=== PATIENT | male | born 1945 | race Caucasian/White ===

== ENCOUNTER 2016-04-11 13:09 | Emergency (ER) | payer OTHER ==
[~2016-04-11] VITALS: Ht 190.5 cm; Wt 113.4 kg
[~2016-04-11 13:09] MED LIST: ACCUNEB SO1.25 MG/1 INH; ACETAMINOPHEN-1 EAC1 PO; ACETAMINOPHEN325 M1 PO; ADVAIR HFA115 MCG/21 INH; AMLODIPINE BESYL5 MG PO; AMOXICILLIN 50500 M1 PO; ATIVAN1 MG PO; AZITHROMYCIN 2250 MG PO; B-1100 MG PO; BENAZEPRIL HCL20 MG PO; CATAPRES0.2 MG PO; CELEXA20 MG PO; CLEOCIN HCL300 MG PO; COLACE100 MG PO; DOXYCYCLINE 10100 M1 PO; DULERA 200 MCG/13 GM INH; HYDRALAZINE 2525 MG PO; HYDROCHLOROTHIA25 M1 PO; HYDROCODON-ACE1 EAC7 PO; IBUPROFEN 600600 M1 PO; LEVAQUIN 500 M500 MG PO; MEDROL DOSPAK21 TA1 PO; MEDROL DOSPAK21 TAB PO; MULTIVITAMINS PO; NYSTATIN15 GM TOP; PEPCID20 MG PO; PRAVACHOL40 MG PO; PREDNISONE 10 M10 MG PO; PREDNISONE 20 M20 MG PO; PREDNISONE50 MG PO; PROAIR HFA8.5 GM INH; SPIRIVA INH; SYMBICORT160 MCG/4. INH; TESSALON200 MG PO; TRAMADOL 50 MG50 MG PO; TRINATE TABLET1 TAB PO; TYLENOL325 MG PO; VALIUM5 MG PO; VENTOLIN HFA 1818 GM INH; VITAMIN B-1100 M1 PO; ZOCOR 20 MG TAB20 M1 PO
[2016-04-11 13:45] LABS: HEMATOCRIT 41.9 % (42.0-52.0); HEMOGLOBIN 14.2 gm/dL (14.0-18.0); MCH 34.1 pg (26.0-34.0); MCHC 33.8 g/dL (28.0-37.0); MCV 100.6 fL (80.0-100.0); PLATELET COUNT 399 thou/uL (150-400); RBC 4.17 mil/uL (4.50-6.00); RDW 15.2 % (10.5-14.5); WBC 5.2 thou/uL (4.0-11.0)
[2016-04-11 14:00] LABS: MANUAL DIFF YES
[2016-04-11 14:01] LABS: CALCIUM 8.7 mg/dL (8.5-10.1); CREATININE 1.1 mg/dL (0.6-1.3); POTASSIUM 4.7 mmol/L (3.5-5.1)
[2016-04-11 14:05] LABS: ALBUMIN 3.2 g/dL (3.4-5.0); TOTAL BILIRUBIN 0.2 mg/dL (<0.1-1.0); TOTAL PROTEIN 6.6 g/dL (6.4-8.2)
[2016-04-11 14:07] LABS: AMP/METHAMP Negative (Negative); BARBITURATES Negative (Negative); BENZODIAZEPINES Negative (Negative); COCAINE Negative (Negative); METHADONE Negative (Negative); OPIATES Negative (Negative); PCP Negative (Negative); THC Negative (Negative)
[2016-04-11 14:30] LABS: ABSOLUTE NEUTROPHILS 3.5 thou/uL (1.4-8.2); ANISOCYTOSIS SLIGHT; METAMYELOCYTES 1 %; TOTAL CELL COUNT 100
== END 2016-04-11 18:13 | disposition home or self-care (01) ==
LOC: ER 13:09
PROVIDERS: Physician Assistant
DX: F10.129 Alcohol abuse with intoxication, unspecified (principal); R42 Dizziness and giddiness; R53.1 Weakness; I10 Essential (primary) hypertension; E78.00 Pure hypercholesterolemia, unspecified; M19.90 Unspecified osteoarthritis, unspecified site; J44.9 Chronic obstructive pulmonary disease, unspecified; Z88.6 Allergy status to analgesic agent; Z87.891 Personal history of nicotine dependence; Y90.8 Blood alcohol level of 240 mg/100 ml or more

== ENCOUNTER 2016-04-19 15:28 | Inpatient (IN) | payer OTHER ==
[~2016-04-19] VITALS: Ht 188 cm; Wt 121.6 kg
--- NOTE | ~2016-04-19 | HC ---
[facility] [place] [address] CONSULTATION Name: LAUREN MAJOR Room #: 450-P ADM IN M.R.#: [id number] Admission: 04/19/16 Attend Phys: Lloyd Marks MD Discharge: Date of : 41 Report #: [id number] THIS REPORT FOR: //name// CC: CLAU physician/PCP Lloyd Marks DATE OF SERVICE: 04/20/2016 DATE OF SERVICE: 04/20/2016. IDENTIFICATION: Psychiatric evaluation as requested for alcohol dependence. HISTORY OF PRESENT ILLNESS: The patient is a 70-year-old retired male with a well known history of alcohol dependence, in fact last year, he had a prolonged period of alcohol withdrawal requiring hospitalization. He was seen by Dr. Marks in consultation at that time and patient denied any significant depression and seemed to have some vague motivations regarding sobriety. Dr. Marks has offered for patient to follow up with him in his office, but the patient did not follow through. Other than the patient's history of alcohol dependence, he has not reported to have any underlying psychiatric illness. There are no reports of devin or psychosis. The patient presented at the hospital of his own accord requesting detox from alcohol. He denies that he is self medicating for depression or anxiety, rather he states that he is bored and spends most of his time by himself and alcohol is how he chooses to pass the time. He does have some insight that his alcohol use is problematic and he states that he is motivated to quit drinking. ALLERGIES: TRAMADOL. MEDICATIONS: Reviewed. Include Ativan as needed for alcohol withdrawal. Haldol 2.5 mg every 2 hours as needed. PAST MEDICAL HISTORY: Hyperlipidemia, hypertension, bronchitis, arthritis, chronic obstructive pulmonary disease, chronic kidney disease. FAMILY HISTORY: Noncontributory. SOCIAL HISTORY: Lives alone, history of smoking cigarettes. He is retired. He has 2 sons who are supportive. LABORATORY DATA: Blood alcohol level was 351 upon arrival. MENTAL STATUS EXAMINATION: Adequate hygiene, polite, cooperative, good eye contact. Speech regular rate and rhythm. Thought process linear, logical, and coherent. No hallucinations or delusions. No suicidal or homicidal ideation. [facility] [address] [place] [address] CONSULTATION Name: LAUREN MAJOR Room #: 450-P [facility] IN M.R.#: [id number] Admission: 04/19/16 Attend Phys: Lloyd Marks MD Discharge: Date of : 41 Report #: [id number] Affect calm and euthymic, plangent, alert and oriented x 3. Insight and judgment are fair. DIAGNOSIS: Alcohol dependence. PLAN: The patient essentially declined any psychiatric intervention. He does deny any depression or anxiety. I discussed with him the possibility of a medication such as naltrexone or Campral for alcohol cravings, but in the end, he declines that as well. He appears to be in the contemplating stage of motivation for change at best. He is not agreeable to inpatient rehabilitation but was willing to consider the possibility of some outpatient treatment, though he is not yet ready to commit to this. I agree with current alcohol detoxification protocol, alcohol withdrawal symptoms appear to be well controlled at this time. Thank you for this consultation. Please contact me with any further questions or concerns. By: [id number] Lalitha Gasca MD /nt
[2016-04-19 15:29] VITALS: BP 156/86
[2016-04-19 17:09] LABS: ABSOLUTE NEUTROPHILS 3.6 thou/uL (1.4-8.2); BASOPHILS 0.4 % (0.0-2.0); EOSINOPHILS 1.6 % (0.0-3.0); HEMATOCRIT 38.4 % (42.0-52.0); HEMOGLOBIN 13.1 gm/dL (14.0-18.0); LYMPHOCYTES 27.1 % (24.0-44.0); MCH 34.2 pg (26.0-34.0); MCHC 34.1 g/dL (28.0-37.0); MCV 100.3 fL (80.0-100.0); MONOCYTES 9.9 % (1.0-8.0); PLATELET COUNT 207 thou/uL (150-400); RBC 3.83 mil/uL (4.50-6.00); WBC 5.8 thou/uL (4.0-11.0)
[2016-04-19 17:10] LABS: MANUAL DIFF NO
[2016-04-19 17:23] LABS: ANION GAP 10 mmol/L (7-16); BUN 7 mg/dL (7-18); CALCIUM 8.2 mg/dL (8.5-10.1); CHLORIDE 106 mmol/L (98-107); CO2 23 mmol/L (21-32); GLUCOSE 111 mg/dL (70-99); POTASSIUM 4.8 mmol/L (3.5-5.1); SODIUM 139 mmol/L (136-145)
[2016-04-19 17:27] LABS: ALBUMIN 2.9 g/dL (3.4-5.0); ALKALINE PHOSPHATASE 68 U/L (46-116); DIRECT BILIRUBIN < 0.1 mg/dL (<0.1-0.3); SGOT 64 U/L (15-37); SGPT 41 U/L (30-65); TOTAL BILIRUBIN 0.3 mg/dL (<0.1-1.0); TOTAL PROTEIN 6.4 g/dL (6.4-8.2)
[2016-04-19 19:14] LABS: URINE BILIRUBIN NEGATIVE (Negative); URINE BLOOD NEGATIVE (Negative); URINE COLOR YELLOW; URINE GLUCOSE-RANDOM* NEGATIVE (Negative); URINE KETONES NEGATIVE (Negative); URINE NITRITE NEGATIVE (Negative); URINE PROTEIN (DIPSTICK) NEGATIVE (Negative); URINE SPECIFIC GRAVITY <= 1.005 (1.003-1.035); URINE UROBILINOGEN 0.2 E.U./dl (0.2-1.0)
[2016-04-19 19:18] LABS: AMP/METHAMP Negative (Negative); BARBITURATES Negative (Negative); BENZODIAZEPINES Negative (Negative); COCAINE Negative (Negative); METHADONE Negative (Negative); OPIATES Negative (Negative); PCP Negative (Negative); THC Negative (Negative)
[2016-04-19 20:15] VITALS: BP 138/73
[2016-04-19 23:06] LABS: FOLIC ACID 33.2 ng/mL (8.6-58.9)
[2016-04-20 04:39] VITALS: BP 122/62
[2016-04-20 08:13] VITALS: BP 138/56
[2016-04-20 10:11] LABS: FREE T4 1.01 ng/dL (0.82-1.77)
[2016-04-20 12:51] LABS: MAGNESIUM 1.5 mg/dL (1.8-2.4); PHOSPHORUS 3.6 mg/dL (2.5-4.9)
[2016-04-20 13:00] VITALS: BP 161/85
[2016-04-20 16:00] VITALS: BP 124/66
[2016-04-20 20:02] VITALS: BP 147/91
[2016-04-21 02:51] VITALS: BP 151/89
[2016-04-21 06:00] LABS: CALCIUM 8.2 mg/dL (8.5-10.1); CREATININE 0.9 mg/dL (0.6-1.3); MAGNESIUM 1.1 mg/dL (1.8-2.4); PHOSPHORUS 3.2 mg/dL (2.5-4.9); POTASSIUM 3.2 mmol/L (3.5-5.1)
[2016-04-21 07:09] VITALS: BP 142/82
[2016-04-21] MEDS ORDERED: PRENATAL PO (10:45)
[2016-04-21] MEDS ORDERED: VITAMIN B-1100 M2 PO (10:45)
[2016-04-21 11:21] VITALS: BP 154/91
[2016-04-21 11:43] LABS: MAGNESIUM 1.1 mg/dL (1.8-2.4); POTASSIUM 3.6 mmol/L (3.5-5.1)
[2016-04-21 14:40] VITALS: BP 154/91
[2016-04-21 14:49] VITALS: BP 154/91
== END 2016-04-21 17:26 | disposition home health service (06) | DRG 895 ==
LOC: ER 15:28 → EROBS 16:40 → 4W 16:40
PROVIDERS: Emergency Medicine; Family Medicine
PROC: HZ31ZZZ Individual Counseling for Substance Abuse Treatment, Behavioral (ICD-10-PCS; principal; 2016-04-20)
DX: F10.229 Alcohol dependence with intoxication, unspecified (principal); E44.1 Mild protein-calorie malnutrition; E78.5 Hyperlipidemia, unspecified; M19.90 Unspecified osteoarthritis, unspecified site; J44.9 Chronic obstructive pulmonary disease, unspecified; I12.9 Hypertensive chronic kidney disease with stage 1 through stage 4 chronic kidney disease, or unspecified chronic kidney disease; N18.9 Chronic kidney disease, unspecified; Y90.8 Blood alcohol level of 240 mg/100 ml or more; Z60.2 Problems related to living alone; E87.6 Hypokalemia; Z79.899 Other long term (current) drug therapy; Z90.49 Acquired absence of other specified parts of digestive tract; Z87.891 Personal history of nicotine dependence; Z88.6 Allergy status to analgesic agent
CPT/HCPCS: 10045

== ENCOUNTER 2016-04-26 01:01 | Inpatient (IN) | payer OTHER ==
[~2016-04-26] VITALS: Ht 188 cm; Wt 123.1 kg
[2016-04-26] VITALS (7 sets, daily range): BP systolic 119–166; BP diastolic 45–82
--- NOTE | ~2016-04-26 | HC ---
[facility] [place] [address] CONSULTATION Name: LAUREN MAJOR Room #: 434-P [facility]#: [id number] Admission: 04/26/16 Attend Phys: Greg Macedo MD Discharge: Date of : 41 Report #: [id number] THIS REPORT FOR: //name// CC: CLAU physician/PCP Greg Macedo DATE OF SERVICE: 04/26/2016 HISTORY OF PRESENT ILLNESS: This gentleman was admitted with concerns about intoxication and need for alcohol detoxification. The patient does have a history of alcoholism. He has been in the hospital earlier this month. He has been evaluated in local Emergency Room as well, I believe and was sent to the triage center downtown. The patient does state he is here because he is interested in obtaining sobriety. He denies underlying depression or anxiety. PAST PSYCHIATRIC HISTORY: The patient denies he has been seen by my partner earlier in the month. At that time, he was also denying depressive comorbidities. SOCIAL HISTORY: He lives alone. He is retired. He has 1 son in [place] and the other son in [facility]. PAST MEDICAL HISTORY: Hyperlipidemia, hypertension, bronchitis, arthritis, chronic obstructive pulmonary disease and chronic kidney disease. ALLERGIES: TRAMADOL. CURRENT MEDICATIONS: He is on an alcohol detox. COGNITIVE EXAMINATION: Alert and oriented to person, place, situation, and time. MENTAL STATUS EXAMINATION: male, casually dressed, stable mood, slightly restricted affect. No suicidal ideation, no homicidal ideation, no hallucinations, no delusions. Insight and judgment fair. DIAGNOSES: AXIS I: Adjustment disorder, depressed mood, overall depressive disorder, not otherwise specified; alcohol use disorder. AXIS II: Deferred. AXIS III: Hypertension, hyperlipidemia. AXIS IV: Moderate. AXIS V: 45. RECOMMENDATIONS: I did educate the gentleman on the benefits of a 21-30 day residential program for management of alcoholism. He is not that inclined to do [facility] [address] [place] [address] CONSULTATION Name: LAUREN MAJOR Room #: 434-P [facility]..#: [id number] Admission: 04/26/16 Attend Phys: Greg Macedo MD Discharge: Date of : 41 Report #: [id number] this, however. He is willing to do some sort of outpatient program and if we cannot find an intensive outpatient program that he would consider, we can look into having him see a therapist in our office a couple of times a week and also undergoing urine screen to assure of sobriety, supportive therapy and education. By: [id number] 1438 Anthony Barrera MD /nt
[~2016-04-26 01:01] MED LIST changes: +PRENATAL PO; +VITAMIN B-1100 M2 PO
[2016-04-26 02:39] LABS: HEMATOCRIT 34.7 % (42.0-52.0); HEMOGLOBIN 11.9 gm/dL (14.0-18.0); MCH 34.7 pg (26.0-34.0); MCHC 34.2 g/dL (28.0-37.0); MCV 101.5 fL (80.0-100.0); RBC 3.42 mil/uL (4.50-6.00); WBC 4.4 thou/uL (4.0-11.0)
[2016-04-26 02:40] LABS: CREATININE 1.2 mg/dL (0.6-1.3); POTASSIUM 3.6 mmol/L (3.5-5.1)
[2016-04-26 02:46] LABS: TOTAL BILIRUBIN 0.2 mg/dL (<0.1-1.0); TOTAL PROTEIN 5.9 g/dL (6.4-8.2)
[2016-04-26 07:26] LABS: MAGNESIUM 1.6 mg/dL (1.8-2.4); PHOSPHORUS 2.4 mg/dL (2.5-4.9)
[2016-04-26 08:31] LABS: FOLIC ACID 25.7 ng/mL (8.6-58.9)
[2016-04-27 04:57] VITALS: BP 146/65
[2016-04-27 05:12] LABS: MCHC 34.3 g/dL (28.0-37.0); MCV 102.1 fL (80.0-100.0); RBC 3.42 mil/uL (4.50-6.00); RDW 15.3 % (10.5-14.5); WBC 5.1 thou/uL (4.0-11.0)
[2016-04-27 05:30] LABS: ALBUMIN 3.1 g/dL (3.4-5.0); CALCIUM 8.5 mg/dL (8.5-10.1); MAGNESIUM 1.2 mg/dL (1.8-2.4); POTASSIUM 3.7 mmol/L (3.5-5.1); TOTAL BILIRUBIN 0.4 mg/dL (<0.1-1.0); TOTAL PROTEIN 6.2 g/dL (6.4-8.2)
[2016-04-27 08:00] VITALS: BP 176/67
[2016-04-27 12:00] VITALS: BP 145/65
[2016-04-27 16:00] VITALS: BP 147/57
[2016-04-27 19:40] VITALS: BP 155/62
[2016-04-28 04:05] VITALS: BP 154/87
[2016-04-28 06:02] LABS: CALCIUM 8.4 mg/dL (8.5-10.1); MAGNESIUM 1.2 mg/dL (1.8-2.4); PHOSPHORUS 2.9 mg/dL (2.5-4.9); POTASSIUM 3.7 mmol/L (3.5-5.1)
[2016-04-28 08:00] VITALS: BP 148/89
[2016-04-28 12:00] VITALS: BP 161/92
[2016-04-28 15:55] VITALS: BP 161/92
[2016-04-28 16:00] VITALS: BP 147/84
[2016-04-28] MEDS ORDERED: REVIA 50 MG TAB50 M1 PO (16:00)
[2016-04-28 17:31] VITALS: BP 161/92
== END 2016-04-28 18:57 | disposition home health service (06) | DRG 896 ==
LOC: ER 01:01 → EROBS 02:15 → 4S 02:15
PROVIDERS: Emergency Medicine; Family Medicine; Internal Medicine
DX: F10.129 Alcohol abuse with intoxication, unspecified (principal); E43 Unspecified severe protein-calorie malnutrition; E78.00 Pure hypercholesterolemia, unspecified; M19.90 Unspecified osteoarthritis, unspecified site; J44.9 Chronic obstructive pulmonary disease, unspecified; E78.5 Hyperlipidemia, unspecified; N18.9 Chronic kidney disease, unspecified; I12.9 Hypertensive chronic kidney disease with stage 1 through stage 4 chronic kidney disease, or unspecified chronic kidney disease; F43.21 Adjustment disorder with depressed mood; E83.42 Hypomagnesemia; R53.81 Other malaise; Z90.49 Acquired absence of other specified parts of digestive tract; Z88.6 Allergy status to analgesic agent; Z87.891 Personal history of nicotine dependence; Z68.34 Body mass index [BMI] 34.0-34.9, adult

== ENCOUNTER 2016-05-04 08:35 | Inpatient (IN) | payer OTHER ==
[~2016-05-04] VITALS: Ht 188 cm; Wt 122.3 kg
--- NOTE | ~2016-05-04 | EKG ---
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
[~2016-05-04 08:35] MED LIST changes: +REVIA 50 MG TAB50 M1 PO
[2016-05-04 08:37] VITALS: BP 103/43
[2016-05-04 09:03] LABS: HEMOGLOBIN 12.6 gm/dL (14.0-18.0); MCH 34.8 pg (26.0-34.0); MCHC 34.1 g/dL (28.0-37.0); PLATELET COUNT 270 thou/uL (150-400); RBC 3.62 mil/uL (4.50-6.00); RDW 15.5 % (10.5-14.5); WBC 8.3 thou/uL (4.0-11.0)
[2016-05-04 09:06] LABS: MANUAL DIFF YES
[2016-05-04 09:11] LABS: ANION GAP 13 mmol/L (7-16); BUN 10 mg/dL (7-18); CALCIUM 8.5 mg/dL (8.5-10.1); CHLORIDE 100 mmol/L (98-107); CO2 22 mmol/L (21-32); CREATININE 1.3 mg/dL (0.6-1.3); GLUCOSE 108 mg/dL (70-99); POTASSIUM 3.7 mmol/L (3.5-5.1); SODIUM 135 mmol/L (136-145)
[2016-05-04 09:15] LABS: ALKALINE PHOSPHATASE 62 U/L (46-116); DIRECT BILIRUBIN < 0.1 mg/dL (<0.1-0.3); SGOT 43 U/L (15-37); SGPT 33 U/L (30-65); TOTAL BILIRUBIN 0.3 mg/dL (<0.1-1.0); TOTAL PROTEIN 6.3 g/dL (6.4-8.2)
[2016-05-04 09:33] LABS: ABSOLUTE NEUTROPHILS 5.6 thou/uL (1.4-8.2); ANISOCYTOSIS 1+; TOTAL CELL COUNT 100
[2016-05-04 10:54] VITALS: BP 102/50
[2016-05-04 11:00] VITALS: BP 117/55
[2016-05-04 12:14] LABS: MAGNESIUM 1.7 mg/dL (1.8-2.4); TROPONIN-I < 0.04 ng/mL (<0.04-0.07)
[2016-05-04 17:10] VITALS: BP 101/43
[2016-05-04 19:44] VITALS: BP 131/56
[2016-05-04 23:53] VITALS: BP 149/87
[2016-05-05 03:47] VITALS: BP 148/69
[2016-05-05 04:43] LABS: ALBUMIN 2.9 g/dL (3.4-5.0); CALCIUM 8.5 mg/dL (8.5-10.1); MAGNESIUM 1.2 mg/dL (1.8-2.4); POTASSIUM 3.9 mmol/L (3.5-5.1); TOTAL BILIRUBIN 0.4 mg/dL (<0.1-1.0); TOTAL PROTEIN 6.3 g/dL (6.4-8.2)
[2016-05-05 08:00] VITALS: BP 116/76
[2016-05-05] MEDS ORDERED: CHLORDIAZEPOXID25 M1 PO (10:08)
[2016-05-05 13:41] VITALS: BP 156/84
[2016-05-05 13:57] VITALS: BP 156/84
== END 2016-05-05 16:34 | disposition home or self-care (01) | DRG 897 ==
LOC: ER 08:35 → 3N 10:21 → EROBS 10:21 → 3N 11:02
PROVIDERS: Emergency Medicine; Nurse Practitioner
DX: F10.129 Alcohol abuse with intoxication, unspecified (principal); E44.1 Mild protein-calorie malnutrition; J44.9 Chronic obstructive pulmonary disease, unspecified; R26.9 Unspecified abnormalities of gait and mobility; I10 Essential (primary) hypertension; Y90.0 Blood alcohol level of less than 20 mg/100 ml; E78.5 Hyperlipidemia, unspecified; M19.90 Unspecified osteoarthritis, unspecified site; Z88.6 Allergy status to analgesic agent; Z87.891 Personal history of nicotine dependence; Z68.34 Body mass index [BMI] 34.0-34.9, adult; Z79.899 Other long term (current) drug therapy
CPT/HCPCS: 10096

== ENCOUNTER 2016-05-07 11:00 | Emergency (ER) | payer OTHER ==
[~2016-05-07] VITALS: Ht 188 cm; Wt 113.4 kg
[~2016-05-07 11:00] MED LIST changes: +CHLORDIAZEPOXID25 M1 PO
[2016-05-07 11:38] LABS: ABSOLUTE NEUTROPHILS 2.4 thou/uL (1.4-8.2); BASOPHILS 0.5 % (0.0-2.0); EOSINOPHILS 3.4 % (0.0-3.0); HEMATOCRIT 40.9 % (42.0-52.0); HEMOGLOBIN 13.7 gm/dL (14.0-18.0); LYMPHOCYTES 34.6 % (24.0-44.0); MCHC 33.6 g/dL (28.0-37.0); MCV 104.1 fL (80.0-100.0); MONOCYTES 9.7 % (1.0-8.0); PLATELET COUNT 264 thou/uL (150-400); POLYS 51.8 % (36.0-66.0); RBC 3.93 mil/uL (4.50-6.00); RDW 15.5 % (10.5-14.5); WBC 4.7 thou/uL (4.0-11.0)
[2016-05-07 11:40] LABS: MANUAL DIFF NO
[2016-05-07 11:49] LABS: ANION GAP 12 mmol/L (7-16); BUN 6 mg/dL (7-18); CALCIUM 9.1 mg/dL (8.5-10.1); CHLORIDE 105 mmol/L (98-107); CO2 22 mmol/L (21-32); CREATININE 1.1 mg/dL (0.6-1.3); GLUCOSE 99 mg/dL (70-99); POTASSIUM 4.1 mmol/L (3.5-5.1); SODIUM 139 mmol/L (136-145)
[2016-05-07 11:54] LABS: ALBUMIN 3.3 g/dL (3.4-5.0); ALKALINE PHOSPHATASE 69 U/L (46-116); DIRECT BILIRUBIN < 0.1 mg/dL (<0.1-0.3); SGOT 62 U/L (15-37); SGPT 42 U/L (30-65); TOTAL BILIRUBIN 0.2 mg/dL (<0.1-1.0); TOTAL PROTEIN 6.7 g/dL (6.4-8.2)
== END 2016-05-07 17:27 ==
LOC: ER 11:00
PROVIDERS: Emergency Medicine
DX: F10.129 Alcohol abuse with intoxication, unspecified (principal); E78.00 Pure hypercholesterolemia, unspecified; I10 Essential (primary) hypertension; M19.90 Unspecified osteoarthritis, unspecified site; J44.9 Chronic obstructive pulmonary disease, unspecified; Z88.6 Allergy status to analgesic agent; Z87.891 Personal history of nicotine dependence; Y90.8 Blood alcohol level of 240 mg/100 ml or more

== ENCOUNTER 2016-05-11 16:44 | Emergency (ER) | payer OTHER ==
[~2016-05-11] VITALS: Ht 188 cm; Wt 117.9 kg
[2016-05-11 17:27] LABS: ABSOLUTE NEUTROPHILS 5.1 thou/uL (1.4-8.2); BASOPHILS 2.8 % (0.0-2.0); EOSINOPHILS 1.5 % (0.0-3.0); HEMATOCRIT 41.1 % (42.0-52.0); HEMOGLOBIN 13.9 gm/dL (14.0-18.0); LYMPHOCYTES 18.8 % (24.0-44.0); MCH 34.7 pg (26.0-34.0); MCHC 33.7 g/dL (28.0-37.0); MONOCYTES 7.6 % (1.0-8.0); PLATELET COUNT 218 thou/uL (150-400); POLYS 69.3 % (36.0-66.0); RDW 15.4 % (10.5-14.5); WBC 7.3 thou/uL (4.0-11.0)
[2016-05-11 17:28] LABS: MANUAL DIFF NO
[2016-05-11 17:34] LABS: CALCIUM 9.1 mg/dL (8.5-10.1); CREATININE 1.2 mg/dL (0.7-1.3)
== END 2016-05-11 20:49 | disposition home or self-care (01) ==
LOC: ER 16:44
PROVIDERS: Physician Assistant
DX: F10.129 Alcohol abuse with intoxication, unspecified (principal); Y90.8 Blood alcohol level of 240 mg/100 ml or more; E78.00 Pure hypercholesterolemia, unspecified; I10 Essential (primary) hypertension; M19.90 Unspecified osteoarthritis, unspecified site; J44.9 Chronic obstructive pulmonary disease, unspecified; Z90.89 Acquired absence of other organs; Z88.6 Allergy status to analgesic agent; Z87.891 Personal history of nicotine dependence

== ENCOUNTER 2016-05-20 22:12 | Emergency (ER) | payer OTHER ==
[~2016-05-20] VITALS: Ht 188 cm; Wt 90.7 kg
== END 2016-05-20 23:06 ==
LOC: ER 22:12
DX: F10.229 Alcohol dependence with intoxication, unspecified (principal); I10 Essential (primary) hypertension; E78.00 Pure hypercholesterolemia, unspecified; M19.90 Unspecified osteoarthritis, unspecified site; J44.9 Chronic obstructive pulmonary disease, unspecified; Z90.89 Acquired absence of other organs; Z88.6 Allergy status to analgesic agent; Z87.891 Personal history of nicotine dependence

== ENCOUNTER 2016-05-24 20:48 | Emergency (ER) | payer OTHER ==
[~2016-05-24] VITALS: Ht 180.3 cm; Wt 117.9 kg
[2016-05-25] MEDS ORDERED: NALTREXONE HCL50 MG PO (23:29)
== END 2016-05-25 00:25 | disposition home or self-care (01) ==
LOC: ER 20:48
DX: F10.129 Alcohol abuse with intoxication, unspecified (principal); E78.00 Pure hypercholesterolemia, unspecified; J44.9 Chronic obstructive pulmonary disease, unspecified; I10 Essential (primary) hypertension; F10.99 Alcohol use, unspecified with unspecified alcohol-induced disorder; Z98.890 Other specified postprocedural states; Z87.891 Personal history of nicotine dependence; Z88.5 Allergy status to narcotic agent

== ENCOUNTER 2016-05-25 16:09 | Observation (INO) | payer OTHER ==
[~2016-05-25] VITALS: Ht 188 cm; Wt 125.6 kg
[2016-05-25 16:11] VITALS: BP 148/76
[2016-05-25 16:36] LABS: ABSOLUTE NEUTROPHILS 3.5 thou/uL (1.4-8.2); BASOPHILS 0.4 % (0.0-2.0); EOSINOPHILS 1.9 % (0.0-3.0); HEMATOCRIT 39.5 % (42.0-52.0); HEMOGLOBIN 13.2 gm/dL (14.0-18.0); LYMPHOCYTES 26.4 % (24.0-44.0); MCH 34.9 pg (26.0-34.0); MCHC 33.4 g/dL (28.0-37.0); MCV 104.3 fL (80.0-100.0); MONOCYTES 11.3 % (1.0-8.0); PLATELET COUNT 319 thou/uL (150-400); RBC 3.78 mil/uL (4.50-6.00); RDW 15.7 % (10.5-14.5); WBC 5.9 thou/uL (4.0-11.0)
[2016-05-25 16:39] LABS: MANUAL DIFF NO
[2016-05-25 17:29] LABS: ALBUMIN 3.2 g/dL (3.4-5.0); CALCIUM 8.6 mg/dL (8.5-10.1); CREATININE 0.9 mg/dL (0.7-1.3); POTASSIUM 4.4 mmol/L (3.5-5.1); TOTAL BILIRUBIN 0.2 mg/dL (<0.1-1.0); TOTAL PROTEIN 6.8 g/dL (6.4-8.2)
[2016-05-25 23:05] VITALS: BP 139/91
[2016-05-25] MEDS ORDERED: NALTREXONE HCL50 MG PO (23:29)
[2016-05-26 03:52] VITALS: BP 154/71
[2016-05-26 06:22] LABS: ALBUMIN 2.9 g/dL (3.4-5.0); CALCIUM 8.6 mg/dL (8.5-10.1); MAGNESIUM 1.1 mg/dL (1.8-2.4); POTASSIUM 3.8 mmol/L (3.5-5.1); TOTAL BILIRUBIN 0.3 mg/dL (<0.1-1.0); TOTAL PROTEIN 6.2 g/dL (6.4-8.2)
[2016-05-26 08:36] VITALS: BP 143/77
[2016-05-26 11:12] VITALS: BP 15/89
[2016-05-26 15:20] VITALS: BP 15/89
[2016-05-26 16:25] VITALS: BP 15/89
== END 2016-05-26 18:00 | disposition home or self-care (01) ==
LOC: ER 16:09 → EROBS 21:15 → 3N 21:15
PROVIDERS: Nurse Practitioner; Physician Assistant
DX: K70.10 Alcoholic hepatitis without ascites (principal); F10.129 Alcohol abuse with intoxication, unspecified; I10 Essential (primary) hypertension; M19.90 Unspecified osteoarthritis, unspecified site; J44.9 Chronic obstructive pulmonary disease, unspecified; J40 Bronchitis, not specified as acute or chronic; J43.9 Emphysema, unspecified; Z91.81 History of falling; Z87.891 Personal history of nicotine dependence
CPT/HCPCS: 23017; 23029; 23031

== ENCOUNTER 2016-06-14 17:37 | Emergency (ER) | payer OTHER ==
[~2016-06-14] VITALS: Ht 182.9 cm; Wt 90.7 kg
[~2016-06-14 17:37] MED LIST changes: +NALTREXONE HCL50 MG PO
== END 2016-06-14 19:45 | disposition home or self-care (01) ==
LOC: ER 17:37
DX: S91.211A Laceration without foreign body of right great toe with damage to nail, initial encounter (principal); F10.120 Alcohol abuse with intoxication, uncomplicated; E78.5 Hyperlipidemia, unspecified; I10 Essential (primary) hypertension; J44.9 Chronic obstructive pulmonary disease, unspecified; Z98.890 Other specified postprocedural states; F17.210 Nicotine dependence, cigarettes, uncomplicated; Z88.6 Allergy status to analgesic agent; X58.XXXA Exposure to other specified factors, initial encounter; Y93.89 Activity, other specified; Y92.89 Other specified places as the place of occurrence of the external cause; Y99.8 Other external cause status

== ENCOUNTER 2016-06-22 12:17 | Inpatient (IN) | payer OTHER ==
[~2016-06-22] VITALS: Ht 188 cm; Wt 117.9 kg
--- NOTE | ~2016-06-22 | HC ---
[facility] [place] [address] CONSULTATION Name: LAUREN MAJOR Room #: 439-P ADM IN M.R.#: [id number] Admission: 06/22/16 Attend Phys: Gloria Davenport MD Discharge: Date of : 43 Report #: [id number] THIS REPORT FOR: //name// CC: Amol Davenport DATE OF SERVICE: 06/23/2016 CHIEF COMPLAINT: Sepsis and generalized lymphedema with cellulitis, right hand. HISTORY OF PRESENT ILLNESS: This heavy 70-year-old gentleman presents with generalized extremity discomfort and generalized edema, which has apparently progressed over the past week or 2 at home. He recalls no specific accidents or injuries. He presented to the Emergency Department yesterday with fever and generalized swelling. One area of concern involved the right hand where he had a ring on the fourth finger and rather significant constriction with distal redness and edema. The ring was cut off and circulation has apparently been adequate, but he still has an area of soft tissue breakdown at the base of the digit and some generalized redness and edema of the fourth finger. When asked where he is primarily symptomatic at this point, he states he is uncomfortable in general but lists the lower aspect of both lower extremities and both elbows as his more significant complaints. He does note some discomfort at the right hand involving the fourth finger where he has some swelling and bruising. He also notes some swelling and discomfort of the left hand at the third finger principally at the PIP joint. Objectively, he is heavy deconditioned and seems mildly confused. He is febrile. Cardiopulmonary status appears to be stable at this point. He is resting comfortably in bed. He notes he does have difficulty with ambulation given his generalized discomfort and what he sees as generalized edema. Both upper extremities reveal satisfactory movements at the shoulder and elbow without bruising or redness. There is some generalized warmth consistent with his fever. The elbows reveal no obvious joint effusion and good range of motion. There is no skin breakdown. There is no significant bruising or swelling or tenderness over the olecranon on either elbow. The forearm, wrist and hand reveal in general normal contour and alignment without deformity and moderate generalized edema. The right hand demonstrates bruising and swelling of the fourth finger with constriction around the base where he previously had a ring in place. There is a bit of superficial skin breakdown where the ring was obviously tight. Distally, the PIP and DIP joints appeared to be well aligned. He is somewhat stiff and uncomfortable with range of motion, but there is no evidence of instability nor deformity. There is not much discomfort proximal to the PIP joint and no tenderness in the palm. He is able to fully extend the digit with only mild discomfort. He has a bit more discomfort with flexion [address] [address] CONSULTATION Name: LAUREN MAJOR Room #: 439-P [facility] IN M.R.#: [id number] Admission: 06/22/16 Attend Phys: Gloria Davenport MD Discharge: Date of : 43 Report #: [id number] suggesting some edema in the region of the PIP joint. Findings are suggestive of cellulitis and some generalized edema, but are not particularly suggestive of abscess nor significant flexor tenosynovitis. The other digits appeared to be normal with exception of moderate generalized edema. Neurologic status seems to be normal. The opposite left hand reveals some swelling and redness at the third finger PIP joint. There is some tenderness to palpation and movement. This does not extend into the flexor aspect of the digit nor into the palm. He demonstrates good range of motion. There is no evidence of abscess or flexor tenosynovitis in the left hand. The abdomen is obese, soft, and nontender. The pelvis is stable. He does have redness and very mild breakdown in the sacral region consistent with a mild decubitus sacral skin problem. This does not seem to be deep and there is no evidence of abscess. The lower extremities reveal generalized edema extending from the thigh down to both feet. He notes some mild discomfort with movement of both knees and palpation or movement of both ankles. I do not see any areas of significant skin breakdown. Neurologic and vascular status seemed to be intact. In summary, this gentleman has evidence of a general sepsis syndrome. He has elevated white count and fever and generalized myalgias and discomfort consistent with sepsis. The primary etiology for this infection is unclear. I doubt that this is primarily involving the right hand. Instead I think he had pressure constriction due to his ring and has some reactive edema and cellulitis. I expect this will improve with antibiotics and after removal of the ring, which was performed yesterday, he has much less significant inflammation and tenderness of the left hand at the third digit PIP joint. This also seems consistent with cellulitis. I do not see any evidence of abscess or infected tenosynovitis in either hand. I do not see any evidence of significant joint infection in the lower extremities. I think further evaluation of the right hand with MRI study would be appropriate. If this shows evidence of a localized fluid collection or abscess or evidence of significant flexor tenosynovitis, then surgical debridement of that area might be appropriate. At this point, however, I think this is best managed in a nonsurgical fashion and would favor continued use of IV antibiotics empirically until blood cultures return. He may continue gentle activity and range of motion of the hand and digits. I will await further comment from his admitting hospitalist and from Infectious Disease. I will follow along and review the MRI of the right hand when it is available. <ELECTRONICALLY SIGNED> By: Rei Cruz MD 06/24/16 0825 1137 1236 Rei Cruz MD /nt
--- NOTE | ~2016-06-22 | H ---
[facility] [place] [address] HISTORY AND PHYSICAL Name: LAUREN MAJOR Room #: 439-P DIS IN M.R.#: [id number] Admission: 06/22/16 Attend Phys: Gloria Davenport MD Discharge: 06/27/16 Date of : 43 Report #: [id number] THIS REPORT FOR: //name// CC: Amol Davenport DATE OF SERVICE: 06/22/2016 CHIEF COMPLAINT: Right fourth finger pain and swelling. HISTORY OF PRESENT ILLNESS: The patient is a 70-year-old alcoholic man, well known to our service from multiple previous hospitalizations. The patient has been sober during the last 2 weeks. He is a poor historian, and cannot give me much of the details. The patient states that he has had swelling for the last couple of weeks, and he was noticed that his ring was stuck on his finger. He had some pain, but it is unclear why he did not come to the Emergency Room sooner. Last few days, his fourth finger on the right hand has been swollen, red, and he lost sensation. He came to the Emergency Room. In the Emergency Room, ring was cut, and x-rays were taken. X-ray is currently pending. White count is slightly elevated at approximately 12,000. The patient has no fever. He denies prior history of swelling. He has no other complaints. He has no chest pain, no shortness of breath, blurry vision, dizziness, or other symptoms. PAST MEDICAL HISTORY: 1. Hypertension. 2. COPD. 3. Dyslipidemia. 4. Chronic alcoholism. CURRENT MEDICATIONS: Amlodipine 10 mg a day, benazepril 20 mg a day, Symbicort 160 mcg b.i.d., naltrexone 50 mg a day, Pravachol 40 mg a day, Spiriva 1 inhaler a day, and albuterol as needed. FAMILY HISTORY: Reviewed and not pertinent to the patient's current condition. SOCIAL HISTORY: The patient drinks alcohol. Reportedly, he has been sober during the last 2 weeks. He quit smoking cigarettes more than a year ago. REVIEW OF SYSTEMS: As above in HPI section. All others negative. PHYSICAL EXAMINATION: GENERAL: The patient is an elderly man who is in no apparent distress. VITAL SIGNS: Blood pressure is 168/81, heart rate is 94, respiration is 24, temperature is 98.2. [facility] [address] [place] [address] HISTORY AND PHYSICAL Name: LAUREN MAJOR Room #: 439-P [facility] IN .R.#: [id number] Admission: 06/22/16 Attend Phys: Gloria Davenport MD Discharge: 06/27/16 Date of : 43 Report #: [id number] HEENT: Pupils are equal. Eye movements are normal. Sclerae are anicteric. NECK: Supple. The patient has no thyromegaly. JVD is not appreciated. RESPIRATORY: Chest moves symmetrically with breathing. Lungs are clear to auscultation bilaterally. Respiratory sounds are diminished throughout. CARDIOVASCULAR: The patient has regular rhythm and rate. He has no murmurs, gallops or rubs. GASTROINTESTINAL: Abdomen is soft, nondistended and nontender. Bowel sounds are normal. Hepatomegaly or splenomegaly is not palpated. MUSCULOSKELETAL: The patient has normal range of motion. He has 2+ pitting edema on extremities and hands. Fourth finger is red and swollen on the right. NEUROLOGIC: The patient has no motor deficits. He has significantly diminished sensation on the fourth finger on the right. SKIN: The patient has significant erythema on the fourth right finger. LABORATORY DATA: Electrolytes are normal. Creatinine is normal. Albumin is 3.0. ALT is high at 101. On CBC, white count is 12.2, with 0 bands. Hemoglobin is 12.7, hematocrit is 37.4, and platelets are 359. Hand x-ray is pending. ASSESSMENT AND PLAN: 1. Ring entrapment, fourth finger on the right, and resulting cellulitis and absent sensation. Infection seems localized, and the patient is not septic. We will treat the patient with clindamycin, and we will ask orthopedic surgeon to evaluate the patient. 2. Swelling, developed last couple of weeks per the patient. The patient has hypoalbuminemia, which is probably due to chronic liver disease from alcoholism. He had cardiac echo 2 years ago, which showed normal ejection fraction at that time, but pulmonary artery pressure could not be assessed. We will repeat cardiac echo. We will use Lasix for now. 3. Hypertension. Blood pressure is elevated. Benazepril will be continued. We will hold amlodipine as it may contribute to swelling. 4. Chronic alcoholism, sober during the last 2 weeks. Naltrexone will be continued. No evidence of withdrawal. 5. Deep venous thrombosis prophylaxis. We will use SCDs. 6. Debility, and reported falls. We will ask physical therapist to evaluate the patient. <ELECTRONICALLY SIGNED> By: Gloria Davenport MD 07/02/16 1745 1621 1706 Gloria Davenport MD /nt
--- NOTE | ~2016-06-22 | 2DMMODE ---
[facility] [address] [facility] [facility] [place] [address] 2 D/M-MODE ECHOCARDIOGRAM Name: LAUREN MAJOR Room #: 439-P ADM IN M.R.#: [id number] Admission: 06/22/16 Attend Phys: Gloria Davenport Discharge: Date of : 41 Date of Service: 06/23/16 1104 Report #: [id number] THIS REPORT FOR: //name// APPROVED REPORT Study performed: 06/23/2016 09:27:50 EXAM: Comprehensive 2D, Doppler, and color-flow Echocardiogram Patient Location: Bedside Room #: 439 Blood Pressure: 149/98 mmHg Other Information Study Quality: Adequate Indications Peripheral Edema 2D Dimensions RVDd: 31.73 mm LVEF(%): 51.90 (>50%) IVSd: 13.81 (7-11mm) LVOT Diam: 19.08 (18-24mm) LVDd: 54.45 mm PWd: 13.88 (7-11mm) Ascending Ao: 31.26 (22-36mm) LVDs: 39.83 (25-40mm) Aortic Root: 29.84 mm IVC: 27.00 mm Contreras's LVEF: 51.90 % Volumes Left Atrial Volume (Systole) Single Plane 4CH: 46.36 mL Single Plane 2CH: 56.06 mL LA ESV Index: 23.00 mL/m2 Aortic Valve AoV Peak Rafi.: 1.72 m/s AO Peak Gr.: 11.81 mmHg LVOT Max P.77 mmHg LVOT Max V: 1.48 m/s JOSE Vmax: 2.46 cm2 Mitral Valve E/A Ratio: 0.9 MV Decel. Time: 173.52 ms MV E Max Rafi.: 1.13 m/s [facility] [address] [place] [address] 2 D/M-MODE ECHOCARDIOGRAM Name: TACHOMILAUREN Room #: 439-P [facility] IN .R.#: [id number] Admission: 06/22/16 Attend Phys: Gloria Davenport Discharge: Date of : 41 Date of Service: 06/23/16 1104 Report #: [id number] MV A Rafi.: 1.25 m/s MV PHT: 50.32 ms IVRT: 76.12 ms Pulmonary Valve PV Peak Rafi.: 1.72 m/s PV Peak Gr.: 11.81 mmHg Pulmonary Vein P Vein S: 0.62 m/s P Vein A: 0.11 m/s P Vein D: 0.46 m/s P Vein A Dur.: 86.5 msec P Vein S/D Ratio: 1.35 Tricuspid Valve RAP Estimate: 10.00 mmHg Left Ventricle Left ventricle is grossly normal size. Mild concentric left ventricular hypertrophy. Left ventricular systolic function is normal. LVEF is 50-55%. Mild diastolic dysfunction is present (impaired relaxation pattern). Right Ventricle The right ventricle is normal size. The right ventricular systolic function is normal. Atria The left atrium size is normal. The right atrium size is normal. Aortic Valve The aortic valve is normal in structure. No aortic regurgitation is present. There is no aortic valvular stenosis. Mitral Valve The mitral valve is normal in structure. Trace mitral regurgitation. No evidence of mitral valve stenosis. Tricuspid Valve The tricuspid valve is normal in structure. There is no tricuspid valve regurgitation noted. Pulmonic Valve The pulmonary valve is normal in structure. Trace pulmonic regurgitation. Great Vessels [facility] [address] [place] [address] 2 D/M-MODE ECHOCARDIOGRAM Name: LAUREN MAJOR Room #: 439-P ADM IN M.R.#: [id number] Admission: 06/22/16 Attend Phys: Gloria Davenport Discharge: Date of : 41 Date of Service: 06/23/16 1104 Report #: [id number] The aortic root is normal in size. The ascending aorta is normal in size. Aortic arch is not visualized. IVC is dilated and collapses >50% with inspiration. Pericardium There is no pericardial effusion. There is no pleural effusion. <Conclusion> Left ventricle is grossly normal size. LVEF is 50-55%. Mild concentric left ventricular hypertrophy. The aortic valve is normal in structure. The mitral valve is normal in structure. The tricuspid valve is normal in structure. The pulmonary valve is normal in structure. Trace pulmonic regurgitation. <ELECTRONICALLY SIGNED> By: Trip Vidal MD 06/23/16 1104 1104 1104 Trip Vidal MD /INF
--- NOTE | ~2016-06-22 | HC ---
[facility] [place] [address] CONSULTATION Name: LAUREN MAJOR Room #: 439-P ADM IN M.R.#: [id number] Admission: 06/22/16 Attend Phys: Gloria Davenport MD Discharge: Date of : 41 Report #: [id number] THIS REPORT FOR: //name// CC: Amol Davenport REASON FOR CONSULTATION: I was asked to evaluate concerning right fourth finger soft tissue infection. HISTORY OF PRESENT ILLNESS: The patient is a 70-year-old with underlying history of COPD, chronic alcoholism, hypertension who presents with increased pain and swelling in his right fourth finger. He had a ring that began cutting into his skin. He had some swelling to that digit. Noticed increased redness and pain and was brought into the Emergency Room on 06/22/2016. Ring was cutoff. He does have persistent swelling and erythema in this region. MRI scan shows no evidence of osteomyelitis or septic arthritis or tenosynovitis. Was seen by orthopedic surgery who recommended continued wound care, antibiotic coverage. In addition, he has tender joints, mostly in his knees and also his left third finger. REVIEW OF SYSTEMS: No cough, sputum, nausea, vomiting, diarrhea. He has had multiple falls. He lives alone. Home health notes that he has been noncompliant with the visits. PAST MEDICAL HISTORY: Hypertension, COPD, hyperlipidemia, alcoholism. ALLERGIES: None. MEDICATIONS: As noted on his MAR, now on vancomycin and Zosyn. FAMILY HISTORY: Noncontributory. SOCIAL HISTORY: States he has been sober for last 2 weeks, past smoker, lives alone. Does have children, but they are not involved in his care. PHYSICAL EXAMINATION: VITAL SIGNS: Afebrile, hemodynamically stable. GENERAL: He is alert and cooperative and pleasant, moderately obese. HEENT: Unremarkable. CHEST: Clear. HEART: Regular, without murmur. ABDOMEN: Soft, nontender, no hepatosplenomegaly or mass. EXTREMITIES: Right fourth finger 2+ swelling, erythema, some local skin injury involving the finger at its base where his ring was in place. No fluctuance. He has limited range of motion. Sensation in the finger was normal. Pulses in the wrist normal. Capillary refill normal. His left third finger had swelling about the PIP joint with what appeared to be nodules or tophi. He has 1+ [facility] [address] [place] [address] CONSULTATION Name: LAUREN MAJOR Room #: 439-P ADM IN M.R.#: [id number] Admission: 06/22/16 Attend Phys: Gloria Davenport MD Discharge: Date of : 41 Report #: [id number] swelling in his knee joints. Has limited range of motion there due to pain. No other skin issues. No adenopathy. Otherwise unremarkable. NEUROLOGIC: Nonfocal. LABORATORY STUDIES: Hemoglobin 12.1, white count 9.9. Differential 79% segs, no bands, 8% lymphs, platelet count 365,000. Sodium 140, potassium 2.9, bicarbonate 25, creatinine 1, bilirubin 1.2, AST 167, ALT 101. Vancomycin is pending. Blood cultures are negative to date. MRI scan as noted above, unremarkable. IMPRESSION AND PLAN: A 70-year-old with soft tissue infection of his right fourth finger and I suspect has some underlying gouty arthritis. Would recommend aspiration of one of his joints to confirm the diagnosis. Would treat with nonsteroidal anti-inflammatories or colchicine and see if he can get his joints feeling better. Continue his cefazolin for his finger along with local wound care. <ELECTRONICALLY SIGNED> By: Zaheer Salgado MD 06/24/16 [id number] Zaheer Salgado MD /nt
[2016-06-22 12:17] VITALS: BP 168/81
[2016-06-22 13:33] LABS: HEMATOCRIT 37.4 % (42.0-52.0); HEMOGLOBIN 12.7 gm/dL (14.0-18.0); MCH 35.5 pg (26.0-34.0); MCHC 33.9 g/dL (28.0-37.0); MCV 104.7 fL (80.0-100.0); PLATELET COUNT 359 thou/uL (150-400); RBC 3.57 mil/uL (4.50-6.00); RDW 15.9 % (10.5-14.5); WBC 12.2 thou/uL (4.0-11.0)
[2016-06-22 13:34] LABS: MANUAL DIFF YES
[2016-06-22 13:43] LABS: CALCIUM 9.2 mg/dL (8.5-10.1); CREATININE 0.9 mg/dL (0.7-1.3); POTASSIUM 3.6 mmol/L (3.5-5.1)
[2016-06-22 13:47] LABS: TOTAL BILIRUBIN 1.2 mg/dL (<0.1-1.0); TOTAL PROTEIN 7.4 g/dL (6.4-8.2); URIC ACID* 6.8 mg/dL (2.6-7.2)
[2016-06-22 13:53] LABS: TOTAL CELL COUNT 100
[2016-06-22 13:54] LABS: MACROCYTES 1+
[2016-06-22 19:39] VITALS: BP 156/73
[2016-06-23 05:03] VITALS: BP 166/91
[2016-06-23 08:00] VITALS: BP 149/98
[2016-06-23 11:08] LABS: HEMATOCRIT 35.6 % (42.0-52.0); HEMOGLOBIN 12.2 gm/dL (14.0-18.0); MCH 35.3 pg (26.0-34.0); MCHC 34.2 g/dL (28.0-37.0); MCV 103.4 fL (80.0-100.0); PLATELET COUNT 364 thou/uL (150-400); RBC 3.44 mil/uL (4.50-6.00); RDW 16.2 % (10.5-14.5); WBC 10.4 thou/uL (4.0-11.0)
[2016-06-23 11:15] LABS: MANUAL DIFF YES
[2016-06-23 11:47] LABS: ANISOCYTOSIS 1+; TOTAL CELL COUNT 100
[2016-06-23 15:24] VITALS: BP 183/94
[2016-06-23 16:46] LABS: HIV-1 P24 AG Nonreactive (Nonreactive)
[2016-06-23 20:00] VITALS: BP 159/70
[2016-06-23 23:10] LABS: HBsAG-EMPLOYEE EXPOSURE Negative (Negative); HCV AB-EMPLOYEE EXPOSURE <0.1 (0.0-0.9)
[2016-06-24 00:30] VITALS: BP 148/98
[2016-06-24 04:00] VITALS: BP 151/59
[2016-06-24 04:02] LABS: CALCIUM 8.5 mg/dL (8.5-10.1)
[2016-06-24 04:06] LABS: HEMATOCRIT 35.3 % (42.0-52.0); HEMOGLOBIN 12.1 gm/dL (14.0-18.0); MCH 35.3 pg (26.0-34.0); MCHC 34.2 g/dL (28.0-37.0); MCV 103.1 fL (80.0-100.0); PLATELET COUNT 365 thou/uL (150-400); RBC 3.42 mil/uL (4.50-6.00); RDW 16.2 % (10.5-14.5); WBC 9.9 thou/uL (4.0-11.0)
[2016-06-24 04:07] LABS: POTASSIUM 2.9 mmol/L (3.5-5.1)
[2016-06-24 04:08] LABS: MANUAL DIFF YES
[2016-06-24 04:22] LABS: MAGNESIUM 1.5 mg/dL (1.8-2.4)
[2016-06-24 05:04] LABS: ABSOLUTE NEUTROPHILS 7.8 thou/uL (1.4-8.2); ANISOCYTOSIS 1+; MACROCYTES 1+; METAMYELOCYTES 1 %; POLYCHROMASIA OCCASIONAL; TOTAL CELL COUNT 100
[2016-06-24 05:05] LABS: LARGE PLATELETS RARE
[2016-06-24 09:09] VITALS: BP 149/63
[2016-06-24 16:17] VITALS: BP 166/77
[2016-06-24 19:19] VITALS: BP 177/80
[2016-06-24 23:59] VITALS: BP 168/76
[2016-06-25 03:48] VITALS: BP 149/57
[2016-06-25 05:21] LABS: HEMATOCRIT 35.5 % (42.0-52.0); HEMOGLOBIN 12.1 gm/dL (14.0-18.0); MCH 35.5 pg (26.0-34.0); MCV 104.3 fL (80.0-100.0); RBC 3.41 mil/uL (4.50-6.00); RDW 16.4 % (10.5-14.5); WBC 11.3 thou/uL (4.0-11.0)
[2016-06-25 05:33] LABS: CALCIUM 8.6 mg/dL (8.5-10.1); CREATININE 0.9 mg/dL (0.7-1.3); MAGNESIUM 1.5 mg/dL (1.8-2.4); POTASSIUM 3.2 mmol/L (3.5-5.1)
[2016-06-25 08:40] VITALS: BP 148/54
[2016-06-25 11:18] LABS: MAGNESIUM 1.6 mg/dL (1.8-2.4); POTASSIUM 3.5 mmol/L (3.5-5.1)
[2016-06-25 16:39] VITALS: BP 148/65
[2016-06-25 19:50] VITALS: BP 169/84
[2016-06-26 03:32] VITALS: BP 151/86
[2016-06-26 08:00] VITALS: BP 157/86
[2016-06-26 16:00] VITALS: BP 151/87
[2016-06-26 20:21] VITALS: BP 146/63
[2016-06-27 05:00] VITALS: BP 150/66
[2016-06-27 08:37] VITALS: BP 148/54
[2016-06-27] MEDS ORDERED: PROBIOTIC1 EAC1 PO (13:33)
[2016-06-27] MEDS ORDERED: CEPHALEXIN 500500 M3 PO (13:33)
[2016-06-27] MEDS ORDERED: OXYCODONE HCL 55 MG PO (13:52)
== END 2016-06-27 18:00 | DRG 872 ==
LOC: ER 12:17 → EROBS 15:12 → 4S 15:12
PROVIDERS: Emergency Medicine; Hospitalist; Internal Medicine Endocrinology, Diabetes & Metabolism; Nurse Practitioner Family; Physician Assistant
DX: A41.9 Sepsis, unspecified organism (principal); E44.0 Moderate protein-calorie malnutrition; L03.011 Cellulitis of right finger; E78.00 Pure hypercholesterolemia, unspecified; I10 Essential (primary) hypertension; M19.90 Unspecified osteoarthritis, unspecified site; J44.9 Chronic obstructive pulmonary disease, unspecified; G58.9 Mononeuropathy, unspecified; F10.21 Alcohol dependence, in remission; E78.5 Hyperlipidemia, unspecified; Z60.2 Problems related to living alone; E87.6 Hypokalemia; E83.42 Hypomagnesemia; Z91.81 History of falling; Z90.49 Acquired absence of other specified parts of digestive tract; Z68.33 Body mass index [BMI] 33.0-33.9, adult; Z79.899 Other long term (current) drug therapy; Z88.6 Allergy status to analgesic agent; Z87.891 Personal history of nicotine dependence
CPT/HCPCS: 10102